=== PATIENT | male | born 1955 | race American Indian/Alaskan Native ===

== ENCOUNTER 2018-02-13 03:54 | Emergency (ER) | payer MEDICAID ==
[~2018-02-13] VITALS: Ht 172.7 cm; Wt 67.3 kg
[~2018-02-13 03:54] MED LIST: IBUP-1984 PO
[2018-02-13] MEDS ORDERED: NALO4SPR INH (04:21)
[2018-02-13 06:47] VITALS: BP 146/86
== END 2018-02-13 06:48 | disposition home or self-care (01) ==
LOC: ER 03:55
DX: T40.1X1A Poisoning by heroin, accidental (unintentional), initial encounter (principal); R40.20 Unspecified coma; F11.90 Opioid use, unspecified, uncomplicated; Y92.89 Other specified places as the place of occurrence of the external cause
CPT/HCPCS: 99283

== ENCOUNTER 2021-10-25 22:07 | Emergency (ER) | payer OTHER, MEDICARE, MEDICAID ==
[~2021-10-25] VITALS: Ht 172.7 cm; Wt 70.5 kg
[~2021-10-25 22:07] MED LIST changes: +NALO4SPR INH
[2021-10-26] MEDS ORDERED: cephalexin 250mg capsule PO ONE (02:25)
[2021-10-26] MEDS ORDERED: TETanus/Pertussis (Acell)/Diphther VAC/PF (Tdap-Adult) 0.5ml syringe IMVAC ONE (02:25)
[2021-10-26] MEDS ORDERED: CEPH-585 PO (02:26)
[2021-10-26 02:42] VITALS: BP 159/97
== END 2021-10-26 02:59 | disposition home or self-care (01) ==
LOC: ER 22:07
DX: L03.116 Cellulitis of left lower limb (principal); F11.90 Opioid use, unspecified, uncomplicated; Z98.890 Other specified postprocedural states; Z79.2 Long term (current) use of antibiotics; Z79.899 Other long term (current) drug therapy
CPT/HCPCS: 90471; 90715; 99284

== ENCOUNTER 2024-11-22 13:30 | Emergency (ER) | payer OTHER, BC, MEDICAID ==
[~2024-11-22] VITALS: Ht 172.7 cm; Wt 63.6 kg
--- NOTE | 2024-11-22 14:32 | Physician Documentation ---
History of Present Illness Chief Complaint: Extremity Swelling Stated Complaint: POSS DVT HPI MSE: Keven saw patient in triage. Medication Reconciliation Allergies: Coded Allergies: No Known Allergies (Unverified , 11/22/24) Scheduled Naloxone HCl (Narcan), 1 DOSPAK INH ONCE Scheduled PRN Ibuprofen* (Motrin*), 800 MG PO Q8H PRN for pain, (Reported) Past Medical History Past Medical History: *CARDIOVASCULAR* Past Surgical History: orthopedic surgeries Drug Use: heroin Lives In: Home Physical Exam Vital Signs: Temperature: 98.1, Source: Oral, Heart Rate: 90, Respiratory Rate: 16, BP: 156/96, Pulse Oximetry: 95, Weight: 63.600 Oxygen Flow Rate: 0 Progress Results/Orders Results/Orders Vital Signs 11/22/24 13:40 Temp 98.1 Pulse 90 Resp 16 B/P (MAP) 156/96 Pulse Ox 95 O2 Flow Rate 0 Departure Impression: Primary Impression: Edema of lower extremity Referrals: NO PRIMARY CARE PROVIDER (PCP) Signature Scribe Signature: A Attestation: Scribed for Brianne Bruce by SARAH Hurtado . 11/24/24 19:50 BRIANNE BRUCE Nov 22, 2024 14:32
--- NOTE | 2024-11-22 20:06 | VASCULAR REPORT ---
EXAM: VASC VL VENOUS Clinical History: left lower extremity wound, erythema Comparison: None Technique: Duplex Doppler evaluation of the deep venous systems of the left lower extremity from the common femoral veins to the popliteal veins including color Doppler and spectral/pulsed waveform analysis was performed. Findings: No visible intraluminal venous thrombus. No evidence of incompressibility or abnormal color or spectral Doppler flow visualized in the deep left lower extremity veins. Proximal greater saphenous vein is grossly unremarkable. Prominent lymph node in the left groin, nonspecific but favored reactive. Impression: 1. No sonographic evidence of deep venous thrombosis throughout the left lower extremity from the popliteal vein to the common femoral vein.
[2024-11-22 20:53] LABS: CREATININE 0.82 MG/DL (0.60-1.10); eCRCL 76 ML/MIN; eGFR > 90 ML/MIN
[2024-11-22 21:04] LABS: TOTAL CARBON DIOXIDE 25.1 MMOL/L (24-32)
--- NOTE | 2024-11-22 21:04 | VASCULAR REPORT ---
EXAM: VASC VL ARTERIAL HISTORY: left lower extremity wound COMPARISON: None TECHNIQUE: Real-time grayscale and color Doppler images of the left lower extremity were obtained with spectral waveform analysis. Findings: Arterial peak systolic velocities reported in units of centimeters per second (cm/sec): Left side: Common femoral - 84 Profunda - 86 Proximal SFA - 102 Mid SFA - 124 Distal SFA - 170 Popliteal - 96 Peroneal - not visualized Posterior tibial - 72 Anterior tibial - 40 Dorsalis pedis - 10 Diffuse multiphasic waveforms IMPRESSION: 1. No evidence of hemodynamically significant stenosis throughout the left lower extremity arterial system.
[2024-11-22 21:21] VITALS: BP 162/90; PULSE 83; RESP 14; TEMP 98.1; O2SAT 99
[2024-11-22 21:38] LABS: MEAN PLATELET VOLUME 7.1 FL (7.4-10.4); RED CELL DISTRIBUTION WIDTH 15.8 % (11.5-14.5)
== END 2024-11-22 22:25 | disposition left against medical advice (07) ==
LOC: ER 13:30
DX: I82.4Z2 Acute embolism and thrombosis of unspecified deep veins of left distal lower extremity (principal)
CPT/HCPCS: 36415; 80053; 85025; 93926; 93971; 99284

== ENCOUNTER 2024-12-14 06:35 | Inpatient (IN) | payer OTHER, BC, MEDICAID ==
[~2024-12-14] VITALS: Ht 172.7 cm; Wt 61.8 kg
--- NOTE | 2024-12-14 07:52 | Physician Documentation ---
Addendum CHIEF COMPLAINT/HPI: The patient is a 69-year-old male with a history of polysubstance abuse and i ntravenous drug use who has had an infection involving his left lower extremity for at least one month. He completed a 10 day course of dual antibiotics and there was some improvement temporarily. Over the past 12 days his leg has become more red and swollen. REVIEW OF SYSTEMS: Constitutional: Denies chills, fatigue, fever, weight gain or weight loss. HEENT: Denies hearing loss, sinus pressure or visual changes. Respiratory: Denies cough, shortness of breath or wheezing. Cardiovascular: Denies chest pain, pain while walking (claudication), edema or palpitations. Gastrointestinal: Denies abdominal pain, blood in stool, constipation, diarrhea, heartburn, loss of appetite, nausea or vomiting. Genitourinary: Denies painful urination (dysuria), excessive amount of urine (polyuria) or urinary frequency. Metabolic/Endocrine: Denies cold intolerance, heat intolerance, excessive thirst (polydipsia) or excessive hunger (polyphagia). Neurological: Denies dizziness, extremity numbness, extremity weakness, headaches, seizures or tremors. Psychiatric: Denies anxiety or depression. Integumentary: Denies breast discharge, breast lump, hives, mole change(s), rash or skin lesion. Musculoskeletal: Erythema and swelling of left lower extremity. Hematologic: Denies easily bleeding, easily bruises, lymphedema or issues with blood clots. Immunologic: Denies food allergies or seasonal allergies. PHYSICAL EXAMINATION: Vitals and nursing note reviewed. Constitutional: General: Patient is awake, alert, oriented x 4 in no acute distress and well appearing. Speech is clear and lucid. Appearance: Normal appearance. Patient is not ill-appearing, toxic-appearing or diaphoretic. HENT: Head: Normocephalic and atraumatic. Mouth: Mucous membranes are moist. Pharynx: Oropharynx is clear. Eyes: General: No scleral icterus. Extraocular Movements: Extraocular movements intact. Pupils: Pupils are equal, round, and reactive to light. Neck: Supple, no Kernig or Brudzinski sign. Cardiovascular: Rate and Rhythm: Normal rate and regular rhythm. Heart sounds: No murmur heard. Pulmonary: Effort: No respiratory distress. Breath sounds: No wheezing, rhonchi or rales. Abdominal: General: There is no distension. Palpations: There is no fluid wave, hepatomegaly or mass. Tenderness: There is no abdominal tenderness. There is no guarding. Musculoskeletal: General: Erythema and swelling of left lower leg. Skin: Coloration: Skin is not jaundiced. Findings: No erythema or rash. Neurological: Mental Status: Patient is alert. MEDICAL DECISION MAKING: I am obtaining laboratory studies, blood culture and wound culture along with a vascular study of the left lower extremity. This patient has a failed outpatien t treatment for his cellulitis and will require admission. I am starting him on vancomycin. Departure Disposition: ADMITTED INPATIENT Admitted to Inpatient Unit: to hospitalist Impression: Primary Impression: Cellulitis Condition: Stable YOCASTA SULLIVAN MD Dec 14, 2024 07:52
[2024-12-14] MEDS: normal saline 1000ml 1,000 ML IV ONE (08:48)
--- NOTE | 2024-12-14 08:53 | VASCULAR REPORT ---
Bilateral lower extremity venous duplex Clinical History: edema Comparison: VASC VL VENOUS on DOS: 11/22/24 Technique: Duplex Doppler evaluation of the deep venous systems of both lower extremities from the common femoral veins to the popliteal veins including color Doppler and spectral/pulsed waveform analysis was performed. Findings: Vein Imaging (Right) CFV (R): Spontaneous, Respirophasic, Augmentation Reflux: ms Vein Imaging (Left) CFV (L): Compressible, Spontaneous, Respirophasic, Augmentation Reflux: ms SFJ (L): Compressible, Spontaneous, Respirophasic, Augmentation Reflux: ms FEM (L): Compressible, Spontaneous, Respirophasic, Augmentation Reflux: ms POP (L): Compressible, Spontaneous, Respirophasic, Augmentation Reflux: ms DFV (L): Compressible, Spontaneous, Respirophasic, Augmentation Reflux: ms PTV (L): Compressible, Spontaneous, Respirophasic, Augmentation Reflux: ms GSV (L): Compressible, Spontaneous, Respirophasic, Augmentation Reflux: ms Peroneals (L): Compressible, Spontaneous, Respirophasic, Augmentation Reflux: ms CONCLUSION Technologist Preliminary Impression: Dwain Rivero, RVT No sonographic evidence of deep venous thrombosis in left lower extremity. Normal compressible veins with spontaneous respirophasic flow and good augmentation throughout left leg. Enlarged lymph node noted in the left groin measurin.7 x 1.3 x 2.5 cm and 1.1 x 0.7 x 2.1 cm. Contralateral common femoral vein also shows normal spontaneous respirophasic flow and good augmentation.
[2024-12-14] MEDS: vancomycin/NS 1 GM ADD-VANTAGE 250 ML X 1 DOSE IV ONE (09:04)
[2024-12-14 09:22] LABS: MEAN PLATELET VOLUME 6.8 FL (7.4-10.4); RED CELL DISTRIBUTION WIDTH 15.1 % (11.5-14.5)
[2024-12-14 09:36] LABS: INR 1.0 INR
[2024-12-14 09:51] LABS: CREATININE 0.78 MG/DL (0.60-1.10); TOTAL CARBON DIOXIDE 27.8 MMOL/L (24-32); eCRCL 78 ML/MIN; eGFR > 90 ML/MIN
[2024-12-14 09:56] LABS: ETHANOL < 10 MG/DL (<10)
[2024-12-14 10:31] LABS: URINE AMPHETAMINE SCREEN POSITIVE (Neg); URINE BARBITUATE SCREEN NEGATIVE (Neg); URINE BENZODIAZEPINES SCREEN NEGATIVE (Neg); URINE CANNABINOID SCREEN POSITIVE (Neg); URINE COCAINE SCREEN NEGATIVE (Neg); URINE METHADONE SCREEN NEGATIVE (Neg); URINE OPIATE SCREEN NEGATIVE (Neg); URINE PHENCYCLIDINE SCREEN NEGATIVE (Neg)
[2024-12-14] MEDS ORDERED: potassium Cl 40MEQ/1/2NS 520ml 520 ML IV PRN (10:45)
[2024-12-14] MEDS ORDERED: magnesium sulf-water 2g/50mL 50 ML IV PRN (10:45)
[2024-12-14] MEDS ORDERED: HYDROcodone/acetaminophen 10/325mg tab PO PRN (10:45)
[2024-12-14] MEDS ORDERED: magnesium Cl slow-release 64mg tablet PO PRN (10:45)
[2024-12-14] MEDS ORDERED: potassium Cl 20 mEq SR tablet PO PRN ×2 (10:45)
[2024-12-14] MEDS: PERFLUTREN PROTEIN-A MICROSPHR (Optison) 0.22 MG/ML 3ML VIAL IV ONE (10:45)
[2024-12-14] MEDS ORDERED: magnesium hydroxide 30ml (MOM) UD suspension PO PRN (10:45)
[2024-12-14] MEDS ORDERED: morphine 4 MG/ML inj SYRINge IV PRN (10:45)
[2024-12-14] MEDS ORDERED: mag hydrox/Alum hydrox/simeth 30ml oral suspension PO PRN (10:45)
[2024-12-14] MEDS ORDERED: HYDROcodone/acetaminophen 5mg/325mg tablet PO PRN (10:45)
[2024-12-14] MEDS ORDERED: magnesium sulf-water 4G/100mL 100 ML IV PRN (10:45)
[2024-12-14] MEDS ORDERED: ondansetron/PF 4mg/2ml inj IV PRN (10:45)
[2024-12-14] MEDS: piperacillin/tazo 3.375gm/50ml 50 ML IV SCH ×2 (11:23→20:42)
[2024-12-14] MEDS: normal saline 1000ml 1,000 ML IV SCH (11:23)
[2024-12-14 11:35] LABS: APTT 32 SECONDS (22-32)
[2024-12-14 11:42] LABS: PHOSPHORUS 3.1 MG/DL (2.3-4.5); PRO BRAIN NATRIURETIC PEPTIDE 100 PG/ML (0-125)
[2024-12-14 14:13] LABS: LEUKOCYTE ESTERASE ,URINE NEGATIVE (Neg); NITRITES, URINE NEGATIVE (Neg); OCCULT BLOOD,URINE NEGATIVE (Neg)
[2024-12-14 14:25] LABS: UA COLLECTION TYPE URINAL
--- NOTE | 2024-12-14 15:48 | ELECTROCARDIOGRAPH REPORT ---
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
--- NOTE | 2024-12-14 19:38 | HISTORY AND PHYSICAL-Residence ---
History & Physical Providers to CC Resident Creating Document: JOSE L FARIAS, RES CC: EFRA ABBOTT MD ~ History of Present Illness Reason for Admit\Complaint: Cellulitis History of Present Illness A 69-year-old male with a history of polysubstance abuse and intravenous drug use who has a past history of osteomyelitis of his right ankle, presented to the ED with left lower extremity cellulitis, patient stated that he had a scratch on his ankle while he was working in his garden,a month ago which started as a small sore and then eventually over a period of one month it developed into cellulitis below his knee extending all the way to his toes. Patient stated that he did experience couple of episodes of fever and chills during this month. Patient stated that he visited the [facility] and was prescribed oral antibiotics which the patient continued for 10 days, but patient continued to have severe pain and increase in redness and erythema in his left lower extremity. Patient's primary care doctor is from the [facility] Patient lives alone in his house Allergies: Coded Allergies: No Known Allergies (Unverified , 12/14/24) Home Medications Home Medications Active Narcan (Naloxone HCl) 4 Mg Ethan 1 Dospak INH ONCE Use as directed Reported Motrin* (Ibuprofen) 400 Mg Tablet 800 Mg PO Q8H PRN Past Medical History Past Medical History Past Surgical History Surgical History Comment Osteomyelitis of right toe 12 years ago post trauma Left eye retina repair Past Social History Social History Comment Patient smokes marijuana every day for the last 15 years Patient also admits to using meth for the last 10 years but stated that he quit 2-3 weeks ago Patient denied any alcohol or tobacco abuse Drug Use: Heroin Lives In: Home ROS ROS Constitutional: No fever, dizziness, weakness, no decrease in appetite HEENT: Normal vision. No sore throat, epistaxis, tinnitus Cardiovascular: No chest pain/discomfort, palpitations, syncope. no pedal edema Respiratory: No sob, cough,hemoptysis Gastrointestinal: No abdominal pain, nausea, vomiting. No diarrhea, melena. Genitourinary: No frquency, urgency, incontinence, nocturia. No dysuria, hematuria Musculoskeletal: Normal, patient complains of pain in his left lower extremity Endocrine: No fatigue, polydipsia, polyuria. No heat or cold intolerance Neurologic: No headache, vertigo. No weakness, numbness or tingling of extremities Psychiatric: No hallucinations/delusions, no anhedonia, no suicidal ideation Hematologic: Left lower extremity cellulitis associated with the erythematous and small vesicles and blisters Exam Vitals: Vital Signs Date Time Temp Pulse Resp B/P (MAP) Pulse Ox O2 Delivery O2 Flow Rate FiO2 12/14/24 19:23 16 12/14/24 17:19 64 96 0 12/14/24 06:39 97.6 General: General: Awake, oriented to person, place and time HEENT: Conjunctive are pink, sclerae clear, no icterus, arcus senilis noted,decreased vision in left eye; reactive to light, no ear discharge, no pharyngeal erythema or an edema. Neck: Supple, no JVD, no lymphadenopathy and thyromegaly. Chest: [place] shaped chest Equal air entry on both lungs, no additional sounds no rhonchi no wheezing at the moment. Cardiovascular: S1-S2 regular sinus rhythm and, regular rate, no gallops, no rubs, no murmurs Abdomen: No visible peristalsis, Bowel sounds present on auscultation, soft, no tenderness, no guarding, no rigidity Extremities: Left lower extremity edema and cellulitis present; right lower extremity chronic vascular insufficiency stasis noted; right lower extremity ankle deformity noted post traumatic surgery; feeble peripheral pulses noted in the right lower extremity Central Nervous System: No focal neurological deficits, no motor or sensory weakness in all 4 extremities, could move all 4 extremities, 2+ deep tendon reflexes, negative Babinski. Musculoskeletal: No joint swelling, deformities, inflammations, and no scoliosis and back tenderness Skin: Warm and dry. Dry oral mucosa. Diagnostic Data Last Recorded Lab Results: 12/14/24 0910 12/14/24 0910 Diagnostic Data: Laboratory Tests Test 12/14/24 09:10 Prothrombin Time 10.2 SECONDS (9.0-12.0) INR International Normalized Ratio 1.0 INR Activated Partial Thromboplast Time 32 SECONDS (22-32) Coagulation Comments Counseling Services Smoking & Tobacco Cessation: 3-10 Minutes (Counseled the patient extensively about the side effects of methamphetamine usage in other illicit drug use) Advance Care Planning Advanced Care plannin - 30 Minutes (Spoke with the patient regarding his code status and patient decided he wanted to be full code) Additional Plan Left lower extremity cellulitis 2/2 failed outpatient oral antibiotics Erythematous lower extremity with small vesicles and blisters noted Presented with fever and chills for the last one month WBC count normal; no fever noted during this admission; patient's CRP is elevated Vascular ultrasound : No sonographic evidence of deep venous thrombosis in left lower extremity. Normal compressible veins with spontaneous respirophasic flow and good augmentation throughout left leg. Enlarged lymph node noted in the left groin. 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 Patient states that he quit few weeks ago Utox during this visit positive for methamphetamine and cannabinoids Substance abuse and social service director consult in place Code Status: Full code DVT Prophylaxis: Heparin Lines/Tubes: PIV Nutrition: Regular diet PT:yes Prognosis: Guarded Disposition: Follow with HbA1c, lipid panel, echocardiogram and inflammatory markers Jose L Farias MD Internal medicine resident,PGY-1 Date of Service: Dec 14, 2024 Billing Provider: EFRA ABBOTT MD Common Visit Codes: [id number] INP/OBS CARE (HIGH) Secondary Visit Codes: [id number] CARE PLAN 30 MINUTES JOSE L FARIAS, RES Dec 14, 2024 19:37 EFRA ABBOTT MD Dec 19, 2024 15:21
[2024-12-14] MEDS: docusate sod 100mg capsule PO SCH (20:00)
[2024-12-14] MEDS: K and/or MAG REPLACEMENT MC SCH (20:06)
[2024-12-14] MEDS: heparin, porcine 5000 units/ml vial SQ SCH (20:43)
[2024-12-14] MEDS ORDERED: iohexol 300mg/ml 100ml inj. ONE (20:52)
[2024-12-14 21:30] VITALS: BP 168/84; PULSE 83; RESP 19; TEMP 97.6; O2SAT 100
--- NOTE | 2024-12-14 21:33 | RADIOLOGY REPORT ---
INDICATION: Cellulitis possible abscess COMPARISON: None TECHNIQUE: CT of the left lower extremity from the proximal femur through the foot was performed with contrast. Volume transverse images were obtained and reconstructed in multiple planes using bone and soft tissue algorithms. Radiation Dose Information: CT Dose: CTDI volume is a mGy. Dose-length product is 736 mGy*cm FINDINGS: Mild posterior subcutaneous stranding in the mid to distal thigh. Circumferential subcutaneous stranding and skin thickening throughout the lower leg extending to the ankle and dorsal forefoot. No visualized fluid collection, soft tissue gas, or deep fascial edema. Diffuse mild to severe atherosclerosis without obvious arterial occlusion. Muscles are unremarkable. Multiple enlarged left inguinal lymph nodes. No acute osseous finding. No knee or ankle joint effusion. No significant degenerative changes. No acute finding on limited assessment of the genitourinary system. IMPRESSION: 1. [place] subcutaneous stranding and skin thickening throughout the left lower leg, foot and ankle. Findings may represent infectious/inflammatory or passive etiology. No visualized fluid collection or evidence of deep space infection. 2. Probably reactive left inguinal adenopathy. 3. Mild to severe atherosclerosis. No obvious arterial occlusion. All CT scans at this medical facility are performed using dose modulation techniques as appropriate to a performed exam including the following: Automated exposure control was utilized; adjustment of the MA and/or KV according to patient size; and use of iterative reconstruction technique.
[2024-12-14] MEDS: vancomycin/NS 1 GM ADD-VANTAGE 250 ML IV SCH (21:41)
[2024-12-15 06:00] VITALS: BP 135/89; PULSE 69; RESP 16; TEMP 97.9; O2SAT 100
[2024-12-15 06:42] LABS: MEAN PLATELET VOLUME 7.0 FL (7.4-10.4); RED CELL DISTRIBUTION WIDTH 15.0 % (11.5-14.5)
[2024-12-15 07:02] LABS: CREATININE 0.76 MG/DL (0.60-1.10); TOTAL CARBON DIOXIDE 28.0 MMOL/L (24-32); eCRCL 80 ML/MIN; eGFR > 90 ML/MIN
[2024-12-15] MEDS: lactobacillus rhamnosus 10,000 MMU CELLS/CAPSULE PO SCH (07:25)
[2024-12-15 08:00] VITALS: RESP 14; O2SAT 98
[2024-12-15] MEDS: piperacillin/tazo 3.375gm/50ml 50 ML IV SCH (08:00)
[2024-12-15 10:00] VITALS: BP 148/81; PULSE 68; RESP 20; TEMP 97.9; O2SAT 98
[2024-12-15] MEDS: JUVEN Shake w/Arg/Glut/Ca2+Bmb (Juven 19.3gm) pkt 240ml PO SCH (12:42)
[2024-12-15 18:00] VITALS: BP 109/75; PULSE 82; RESP 16; TEMP 99; O2SAT 98
--- NOTE | 2024-12-15 18:24 | PROGRESS NOTE- Residence ---
Progress Note - Resident Providers to CC Resident Creating Document: JOSE L FARIAS RES CC: EFRA ABBOTT MD ~ Antibiotic Timeout Antibiotic Ordered?: Yes Subjective Patient was seen and examined at bedside; patient stated that he notices pain decreased better compared to yesterday. No other acute overnight symptoms noted Objective Vital Signs Date Time Temp Pulse Resp B/P (MAP) Pulse Ox O2 Delivery O2 Flow Rate FiO2 12/15/24 10:00 97.9 68 20 148/81 (103) 98 Room Air 12/15/24 08:00 0.0 Result Diagram: 12/15/2454212/15/24542 General: Awake, oriented to person, place and time HEENT: Conjunctive are pink, sclerae clear, no icterus, arcus senilis noted,decreased vision in left eye; reactive to light, no ear discharge, no pharyngeal erythema or an edema. Neck: Supple, no JVD, no lymphadenopathy and thyromegaly. Chest: [place] shaped chest Equal air entry on both lungs, no additional sounds no rhonchi no wheezing at the moment. Cardiovascular: S1-S2 regular sinus rhythm and, regular rate, no gallops, no rubs, no murmurs Abdomen: No visible peristalsis, Bowel sounds present on auscultation, soft, no tenderness, no guarding, no rigidity Extremities: Left lower extremity edema and cellulitis present; right lower extremity chronic vascular insufficiency stasis noted; right lower extremity ankle deformity noted post traumatic surgery; feeble peripheral pulses noted in the right lower extremity Central Nervous System: No focal neurological deficits, no motor or sensory weakness in all 4 extremities, could move all 4 extremities, 2+ deep tendon reflexes, negative Babinski. Musculoskeletal: No joint swelling, deformities, inflammations, and no scoliosis and back tenderness Skin: Warm and dry. Dry oral mucosa. Coagulation Studies Laboratory Tests Test 12/14/24 09:10 Prothrombin Time 10.2 SECONDS (9.0-12.0) INR International Normalized Ratio 1.0 INR Activated Partial Thromboplast Time 32 SECONDS (22-32) Coagulation Comments Advance Care Planning Advanced Care plannin - 30 Minutes Plan Plan Left lower extremity cellulitis 2/2 failed outpatient oral antibiotics Erythematous lower extremity with small vesicles and blisters noted Presented with fever and chills for the last one month WBC count normal; no fever noted during this admission; patient's CRP is elevated Vascular ultrasound : No sonographic evidence of deep venous thrombosis in left lower extremity. Normal compressible veins with spontaneous respirophasic flow and good augmentation throughout left leg. Enlarged lymph node noted in the left groin. 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 Patient states that he quit few weeks ago Utox during this visit positive for methamphetamine and cannabinoids Substance abuse and social welfare clerk consult in place Hypertension-possibly newly diagnosed Blood pressure has been elevated during this visit Initiated the patient on amlodipine 5 mg; we will titrate as needed Echocardiogram normal with EF of 65-70% Code Status: Full code DVT Prophylaxis: Heparin Lines/Tubes: PIV Nutrition: Regular diet PT:yes Prognosis: Guarded Disposition: We will continue to monitor the patient today Jose L Farias MD Internal medicine resident,PGY-1 Date of Service: Dec 15, 2024 Billing Provider: EFRA ABBOTT MD Common Visit Codes: [id number] INP/OBS CARE(HIGH) JOSE L FARIAS, RES Dec 15, 2024 18:23 EFRA ABBOTT MD Dec 19, 2024 15:21
[2024-12-15] MEDS: VANCOMYCIN LEVEL IV ONE (21:03)
[2024-12-15 22:00] VITALS: BP 128/82; PULSE 80; RESP 14; TEMP 97.3; O2SAT 98
--- NOTE | 2024-12-16 05:51 | CARDIOLOGY REPORT ---
APPROVED REPORT EXAM: Comprehensive 2D, Doppler, and color-flow Echocardiogram. Patient Location: ER R 11 Blood Pressure: 172/96 mmHg Heart Rate: 69 bpm Indications Rule Out Endocarditis Polysubstance Abuse Angiogram w/o Stent (05/2014) Manager Er: Cuauhtemoc Kaba MD No previous ECHO 2D Dimensions LA Diam 3.1 cm IVSd 0.6 (0.7-1.1cm) LVDd 5.2 cm PWd 1.0 (0.7-1.1cm) IVSs 1.0 (0.8-1.2cm) LVDs 3.3 (2.5-4.0cm) PWs 1.5 (0.8-1.2cm) LVOT Diameter 2.22 (1.8-2.4cm) LVEF(%) 65.8 (>50%) Ao Asc Diam. 3.06 cm IVC 18.40 mm FS (%) 36.4 % SV 85.6 ml CO 5.6 L/min M-Mode Dimensions Left Atrium(MM) 3.88 (2.5-4.0cm) Aortic Root 3.15 (2.2-3.7cm) Aortic Cusp Exc 2.20 (1.5-2.0cm) MV EPSS 1.2 (<0.5cm) Aortic Valve AoV Peak Nathaniel. 132.2 cm/s AoV VTI 26.3 cm AO Peak GR. 7.0 mmHg AO Mean GR. 4 mmHg LVOT VTI 17.94 cm LVOT Peak Nathaniel. 88.9 cm/s KRISTAL(VTI)/BSA 2.65 cm2/m2 KRISTAL (VTI) 2.65 cm2 AV DI 0.68 % Mitral Valve MV E Velocity 66.4 cm/s MV Peak Gr. 2 mmHg MV DECEL TIME 224 ms MV A Velocity 73.2 cm/s MV PHT 68 ms E/A Ratio 0.9 MVA (PHT) 3.24 cm2 MV VMax 61.7 cm/s TDI Lateral E' P. V 11.63 cm/s E/Lateral E' 5.7 Tricuspid Valve TR P. Velocity 209 cm/s RAP ESTIMATE 10 mmHg TR Peak Gr. 18 mmHg RVSP 28 mmHg LEFT VENTRICLE Normal LV size and wall thickness. Overall systolic function is normal. LVEF is 65-70%. RIGHT VENTRICLE Right ventricle is mild to moderately dilated with adequate function. ATRIA The left atrium size is normal. AORTIC VALVE Trileaflet AV appears mildly sclerotic without stenosis. No insufficiency. No vegetation seen. MITRAL VALVE Moderate mitral annular calcification without stenosis. Trace regurgitation. No vegetation seen. TRICUSPID VALVE The tricuspid valve is normal in structure with trace regurgitation. No vegetation seen. PULMONIC VALVE The pulmonary valve is normal in structure with physiologic insufficiency. No vegetation seen. GREAT VESSELS The aortic root is normal in size. The ascending aorta is normal in size. The IVC is normal in size and collapses >50% with inspiration. PERICARDIUM Normal pericardium. No effusion. Other Information Study Quality: Adequate Conclusion Normal LV size and wall thickness. Overall systolic function is normal. LVEF is 65-70%. Right ventricle is mild to moderately dilated with adequate function. The left atrium size is normal. Trileaflet AV appears mildly sclerotic without stenosis. No insufficiency. No vegetation seen. Moderate mitral annular calcification without stenosis. Trace regurgitation. No vegetation seen. The tricuspid valve is normal in structure with trace regurgitation. No vegetation seen. The pulmonary valve is normal in structure with physiologic insufficiency. No vegetation seen. Normal pericardium. No effusion.
[2024-12-16 06:00] VITALS: BP 145/79; PULSE 75; RESP 14; TEMP 97.8; O2SAT 97
[2024-12-16 07:24] LABS: MEAN PLATELET VOLUME 6.9 FL (7.4-10.4); RED CELL DISTRIBUTION WIDTH 14.7 % (11.5-14.5)
[2024-12-16 08:00] VITALS: RESP 12; O2SAT 97
[2024-12-16 08:01] LABS: CREATININE 0.68 MG/DL (0.60-1.10); TOTAL CARBON DIOXIDE 25.3 MMOL/L (24-32)
[2024-12-16 08:02] LABS: eCRCL 90 ML/MIN; eGFR > 90 ML/MIN
[2024-12-16 10:00] VITALS: BP 154/87; PULSE 72; RESP 16; TEMP 98.5; O2SAT 100
--- NOTE | 2024-12-16 15:52 | PROGRESS NOTE- Residence ---
Progress Note - Resident Providers to CC Resident Creating Document: JOSE L FARIAS RES CC: UBALDO EARL DO ~ Antibiotic Timeout Antibiotic Ordered?: Yes Subjective Patient was seen and examined at bedside; patient stated that he notices pain decreased better compared to yesterday. No other acute overnight symptoms noted Objective Vital Signs Date Time Temp Pulse Resp B/P (MAP) Pulse Ox O2 Delivery O2 Flow Rate FiO2 12/16/24 10:00 98.5 72 16 154/87 (109) 100 Room Air 12/16/24 08:00 0.0 Result Diagram: 12/16/2454 12/16/24653 General: Awake, oriented to person, place and time HEENT: Conjunctive are pink, sclerae clear, no icterus, arcus senilis noted,decreased vision in left eye; reactive to light, no ear discharge, no pharyngeal erythema or an edema. Neck: Supple, no JVD, no lymphadenopathy and thyromegaly. Chest: [place] shaped chest Equal air entry on both lungs, no additional sounds no rhonchi no wheezing at the moment. Cardiovascular: S1-S2 regular sinus rhythm and, regular rate, no gallops, no rubs, no murmurs Abdomen: No visible peristalsis, Bowel sounds present on auscultation, soft, no tenderness, no guarding, no rigidity Extremities: Left lower extremity edema and cellulitis present erythematous with scab tissues; right lower extremity chronic vascular insufficiency stasis noted; right lower extremity ankle deformity noted post traumatic surgery; feeble peripheral pulses noted in the right lower extremity Central Nervous System: No focal neurological deficits, no motor or sensory weakness in all 4 extremities, could move all 4 extremities, 2+ deep tendon reflexes, negative Babinski. Musculoskeletal: No joint swelling, deformities, inflammations, and no scoliosis and back tenderness Skin: Warm and dry. Dry oral mucosa. Coagulation Studies Laboratory Tests Test 12/14/24 09:10 Prothrombin Time 10.2 SECONDS (9.0-12.0) INR International Normalized Ratio 1.0 INR Activated Partial Thromboplast Time 32 SECONDS (22-32) Coagulation Comments Advance Care Planning Advanced Care plannin - 30 Minutes Assessment Assessment A 69-year-old male with a history of polysubstance abuse and intravenous drug use who has a past history of osteomyelitis of his right ankle, presented to the ED with left lower extremity cellulitis, Plan Plan Left lower extremity cellulitis 2/2 failed outpatient oral antibiotics MRSA positive nasal nares Erythematous lower extremity with small vesicles and scabs noted Decrease in erythema and edema in the left lower extremity noted compared to before Plan Continue antibiotics ceftriaxone and Zosyn day 3 Continue normal saline 100 mL/hour Elevate patient's left lower extremity Pain medications in place in case patient complains of pain Wound care consult in place Active illicit drug use 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 Patient states that he quit few weeks ago Utox during this visit positive for methamphetamine and cannabinoids Substance abuse and clinical social worker consult in place Hypertension-possibly newly diagnosed Blood pressure has been elevated during this visit Initiated the patient on amlodipine 5 mg; we will titrate as needed Echocardiogram normal with EF of 65-70% Code Status: Full code DVT Prophylaxis: Heparin Lines/Tubes: PIV Nutrition: Regular diet PT:yes Prognosis: Guarded Disposition: We will continue to monitor the patient today; possible discharge tomorrow Jose L Farias MD Internal medicine resident,PGY-1 Date of Service: Dec 16, 2024 Billing Provider: UBALDO EARL DO Common Visit Codes: [id number] INP/OBS CARE(HIGH) JOSE L FARIAS, RES Dec 16, 2024 15:52 UBALDO EARL DO Dec 16, 2024 17:00
[2024-12-16 18:00] VITALS: BP 143/87; PULSE 68; RESP 15; TEMP 98.4; O2SAT 100
[2024-12-16] MEDS: VANCOMYCIN LEVEL IV ONE (21:20)
[2024-12-16 22:00] VITALS: BP 136/67; PULSE 76; RESP 14; TEMP 97.6; O2SAT 97
[2024-12-17 06:00] VITALS: BP 149/97; PULSE 79; RESP 14; TEMP 97.3; O2SAT 98
[2024-12-17 06:45] LABS: MEAN PLATELET VOLUME 7.1 FL (7.4-10.4)
[2024-12-17 06:48] LABS: RED CELL DISTRIBUTION WIDTH 14.9 % (11.5-14.5)
[2024-12-17 07:00] LABS: CREATININE 1.00 MG/DL (0.60-1.10); TOTAL CARBON DIOXIDE 25.4 MMOL/L (24-32); eCRCL 61 ML/MIN; eGFR 74 ML/MIN
[2024-12-17 08:00] VITALS: RESP 14; O2SAT 98; O2SAT 99
[2024-12-17 10:00] VITALS: BP 124/80; PULSE 82; RESP 12; TEMP 98; O2SAT 99
--- NOTE | 2024-12-17 12:42 | PROGRESS NOTE- Residence ---
Progress Note - Resident Providers to CC Resident Creating Document: JOSE L FARIAS RES CC: UBALDO EARL DO ~ Antibiotic Timeout Antibiotic Ordered?: Yes Subjective Patient was seen and examined at bedside; his left leg cellulitis is getting much better compared to before; decrease in erythema and increased scab formation is noted; patient is comfortably resting in his bed. No other acute overnight symptoms noted Objective Vital Signs Date Time Temp Pulse Resp B/P (MAP) Pulse Ox O2 Delivery O2 Flow Rate FiO2 12/17/24 08:06 79 12/17/24 08:00 14 99 Room Air 12/17/24 06:00 97.3 149/97 (114) 12/16/24 08:00 0.0 Result Diagram: 12/17/2432 12/17/24531 General: Awake, oriented to person, place and time HEENT: Conjunctive are pink, sclerae clear, no icterus, arcus senilis noted,decreased vision in left eye; reactive to light, no ear discharge, no pharyngeal erythema or an edema. Neck: Supple, no JVD, no lymphadenopathy and thyromegaly. Chest: [place] shaped chest Equal air entry on both lungs, no additional sounds no rhonchi no wheezing at the moment. Cardiovascular: S1-S2 regular sinus rhythm and, regular rate, no gallops, no rubs, no murmurs Abdomen: No visible peristalsis, Bowel sounds present on auscultation, soft, no tenderness, no guarding, no rigidity Extremities: Left lower extremity cellulitis present erythematous with scab tissues; right lower extremity chronic vascular insufficiency stasis noted; right lower extremity ankle deformity noted post traumatic surgery; weak peripheral pulses noted in the right lower extremity Central Nervous System: No focal neurological deficits, no motor or sensory weakness in all 4 extremities, could move all 4 extremities, 2+ deep tendon reflexes, negative Babinski. Musculoskeletal: No joint swelling, deformities, inflammations, and no scoliosis and back tenderness Skin: Warm and dry. Dry oral mucosa. Coagulation Studies Laboratory Tests Test 12/14/24 09:10 Prothrombin Time 10.2 SECONDS (9.0-12.0) INR International Normalized Ratio 1.0 INR Activated Partial Thromboplast Time 32 SECONDS (22-32) Coagulation Comments Advance Care Planning Advanced Care plannin - 30 Minutes Assessment Assessment A 69-year-old male with a history of polysubstance abuse and intravenous drug use who has a past history of osteomyelitis of his right ankle, presented to the ED with left lower extremity cellulitis, Plan Plan Left lower extremity cellulitis 2/2 failed outpatient oral antibiotics MRSA positive nasal nares Erythematous lower extremity with small vesicles and scabs noted Decrease in erythema and edema in the left lower extremity noted compared to before Plan Continue antibiotics ceftriaxone and Zosyn day 4 Continue normal saline 100 mL/hour Elevate patient's left lower extremity Pain medications in place in case patient complains of pain Wound care consult in place Active illicit drug use 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 Jose L Farias MD Internal medicine resident,PGY-1 Date of Service: Dec 17, 2024 Billing Provider: UBALDO EARL DO Common Visit Codes: [id number] INP/OBS CARE(HIGH) JOSE L FARIAS, RES Dec 17, 2024 12:42 UBALDO EARL DO Dec 17, 2024 14:35
[2024-12-17 18:00] VITALS: BP 153/83; PULSE 73; RESP 14; TEMP 98.8; O2SAT 99
[2024-12-17] MEDS ORDERED: diphenhydrAMINE 2%/zinc acetate cream TP PRN (18:30)
[2024-12-17] MEDS: VANCOmycin 1250MG/NS 250ml Bag 250 ML IV SCH (21:42)
[2024-12-17 22:00] VITALS: BP 137/65; PULSE 77; RESP 16; TEMP 97.8; O2SAT 93
[2024-12-18 05:47] LABS: MEAN PLATELET VOLUME 6.8 FL (7.4-10.4); RED CELL DISTRIBUTION WIDTH 14.8 % (11.5-14.5)
[2024-12-18 06:00] VITALS: BP 155/91; PULSE 80; RESP 22; TEMP 97.7; O2SAT 99
[2024-12-18 06:00] LABS: CREATININE 0.90 MG/DL (0.60-1.10); TOTAL CARBON DIOXIDE 25.4 MMOL/L (24-32); eCRCL 68 ML/MIN; eGFR 84 ML/MIN
[2024-12-18 06:55] VITALS: BP 155/91; PULSE 80; RESP 22; TEMP 97.7; O2SAT 99
[2024-12-18 10:00] VITALS: BP 120/82; PULSE 77; RESP 16; TEMP 97.5; O2SAT 96
[2024-12-18] MEDS ORDERED: GADOTERATE MEGLUMINE 7.5 MMOL/15 ML VIAL IV ONE (13:39)
--- NOTE | 2024-12-18 13:56 | RADIOLOGY REPORT ---
CLINICAL HISTORY: Infection. Rule out osteomyelitis. TECHNIQUE: Multi sequence multi planar MRI images of the left lower leg were obtained prior to and after the uneventful administration of 12 mL clariscan contrast. COMPARISON: CT CT LOWER EXTREMITY W/ IV CONTRAST on DOS: 12/14/24 FINDINGS: There is moderate subcutaneous edema and enhancement in the left lower leg, likely cellulitis in the appropriate clinical setting. No organized fluid collection identified to suggest abscess. No findings are seen to suggest myositis or fasciitis. No evidence of osteomyelitis. IMPRESSION: Findings in the left lower extremity consistent with cellulitis in the appropriate clinical setting. No evidence of abscess or osteomyelitis.
[2024-12-18] MEDS ORDERED: LACT1CAP26 PO (14:25)
[2024-12-18] MEDS ORDERED: LINE600T14 PO (14:25)
[2024-12-18] MEDS ORDERED: NOR5T PO (14:25)
--- NOTE | 2024-12-18 20:10 | DISCHARGE SUMMARY-Residence ---
Discharge Summary Providers to CC Resident Creating Document: CUEMILY ZHANG, RES ~ Discharge Summary Admission Diagnosis: Cellulitis Hospital Course DATE OF ADMISSION: 12/14/2024 DATE OF DISCHARGE: 12/19/2019 Discharge Diagnosis\Comment: Left lower extremity cellulitis 2/2 failed outpatient oral antibiotics MRSA positive nasal nares Active illicit drug use Hypertension-possibly newly diagnosed Operations\Procedures: None Consultants: None Complications: None Condition on DC: Stable New Medications: Lactobacillus Rhamnosus (Culturelle) 10 Billion Cell Capsule 1 CAP PO DAILY for 30 Days, #30 CAP 0 Refills Linezolid (Linezolid) 600 Mg Tablet 1 TAB PO Q12H for 10 Days, #20 TAB 0 Refills Amlodipine Besylate (Amlodipine Besylate) 5 Mg Tablet 10 MG PO DAILY for 30 Days, #60 TAB Continued Medications: Ibuprofen* (Motrin*) 400 Mg Tablet 800 MG PO Q8H PRN for pain, TAB Naloxone HCl (Narcan) 4 Mg [place] 1 DOSPAK INH ONCE, #2 Use as directed Discharge Summary: HPI as per admitting physician: A 69-year-old male with a history of polysubstance abuse and intravenous drug use who has a past history of osteomyelitis of his right ankle, presented to the ED with left lower extremity cellulitis, patient stated that he had a scratch on his ankle while he was working in his garden,a month ago which started as a small sore and then eventually over a period of one month it developed into cellulitis below his knee extending all the way to his toes. Patient stated that he did experience couple of episodes of fever and chills during this month. Patient stated that he visited the [facility] and was prescribed oral antibiotics which the patient continued for 10 days, but patient continued to have severe pain and increase in redness and erythema in his left lower extremity. Patient's primary care doctor is from the [facility] Patient lives alone in his house Hospital course: The patient is a 69-year-old male with a history of polysubstance abuse, intravenous drug use, and prior osteomyelitis of the right ankle, who presented to the ED with left lower extremity cellulitis. On admission, he was noted to have erythema, edema, small vesicles, and scabbing of the left lower extremity, with MRSA-positive nasal colonization. He reported a history of long-term methamphetamine and marijuana use; urine toxicology on this admission was positive for methamphetamine and cannabinoids. The patient was started on IV vancomycin and Zosyn for cellulitis, with the left leg elevated and pain managed as needed. Wound care consultation was obtained. During hospitalization, cellulitis improved with decreased erythema and edema. Fluids were maintained with normal saline at 100 mL/hr, and blood pressure management included amlodipine increased to 10 mg daily for possible newly diagnosed hypertension. Echocardiogram revealed a normal ejection fraction of 6570%, and MRI was negative for osteomyelitis. Substance abuse and social services technician were involved for counseling and discharge planning. The patient remained stable, and arrangements were made for discharge to [facility], with follow-up planned with primary care, wound care, and substance use services. Physical examination today: General: Awake, oriented to person, place and time HEENT: Conjunctive are pink, sclerae clear, no icterus, arcus senilis noted,decreased vision in left eye; reactive to light, no ear discharge, no pharyngeal erythema or an edema. Neck: Supple, no JVD, no lymphadenopathy and thyromegaly. Chest: [place] shaped chest Equal air entry on both lungs, no additional sounds no rhonchi no wheezing at the moment. Cardiovascular: S1-S2 regular sinus rhythm and, regular rate, no gallops, no rubs, no murmurs Abdomen: No visible peristalsis, Bowel sounds present on auscultation, soft, no tenderness, no guarding, no rigidity Extremities: Left lower extremity cellulitis present erythematous with scab tissues; right lower extremity chronic vascular insufficiency stasis noted; right lower extremity ankle deformity noted post traumatic surgery; weak peripheral pulses noted in the right lower extremity Central Nervous System: No focal neurological deficits, no motor or sensory weakness in all 4 extremities, could move all 4 extremities, 2+ deep tendon reflexes, negative Babinski. Musculoskeletal: No joint swelling, deformities, inflammations, and no scoliosis and back tenderness Skin: Warm and dry. Dry oral mucosa. Imaging: Vascular ultrasound: No sonographic evidence of deep venous thrombosis in left lower extremity. Normal compressible veins with spontaneous respirophasic flow and good augmentation throughout left leg. Enlarged lymph node noted in the left groin measurin.7 x 1.3 x 2.5 cm and 1.1 x 0.7 x 2.1 cm. Contralateral common femoral vein also shows normal spontaneous respirophasic flow and good augmentation. Echocardiogram: Normal LV size and wall thickness. Overall systolic function is normal. LVEF is 65-70%. Right ventricle is mild to moderately dilated with adequate function. The left atrium size is normal. Trileaflet AV appears mildly sclerotic without stenosis. No insufficiency. No vegetation seen. Moderate mitral annular calcification without stenosis. Trace regurgitation. No vegetation seen. The tricuspid valve is normal in structure with trace regurgitation. No vegetation seen. The pulmonary valve is normal in structure with physiologic insufficiency. No vegetation seen. Normal pericardium. No effusion. CT lower extremity: 1. [place] subcutaneous stranding and skin thickening throughout the left lower leg, foot and ankle. Findings may represent infectious/inflammatory or passive etiology. No visualized fluid collection or evidence of deep space infection. 2. Probably reactive left inguinal adenopathy. 3. Mild to severe atherosclerosis. No obvious arterial occlusion. MRI lower extremity: Findings in the left lower extremity consistent with cellulitis in the appropriate clinical setting. No evidence of abscess or osteomyelitis. Laboratory Tests Test 12/16/24 21:05 12/17/24 05:32 12/18/24 05:19 12/18/24 07:52 Vancomycin Level Trough 11.1 ug/mL White Blood Count 8.8 X10'3 9.0 X10'3 Red Blood Count 4.62 X10'6 4.51 X10'6 Hemoglobin 13.5 g/dl 13.5 g/dl Hematocrit 41.1 % 39.3 % Mean Corpuscular Volume 89.0 FL 87.1 FL Mean Corpuscular Hemoglobin 29.1 PG 29.9 PG Mean Corpuscular Hemoglobin Concent 32.7 g/dL 34.3 g/dL Red Cell Distribution Width 14.9 % 14.8 % Platelet Count 574 X10'3 648 X10'3 Mean Platelet Volume 7.1 FL 6.8 FL Neutrophils (%) (Auto) 68.5 % 69.9 % Lymphocytes (%) (Auto) 18.9 % 16.5 % Monocytes (%) (Auto) 7.6 % 7.6 % Eosinophils (%) (Auto) 4.1 % 4.8 % Basophils (%) (Auto) 0.9 % 1.2 % Neutrophils # (Auto) 6.1 X10'3 6.3 X10'3 Lymphocytes # (Auto) 1.7 X10'3 1.5 X10'3 Monocytes # (Auto) 0.7 X10'3 0.7 X10'3 Eosinophils # (Auto) 0.4 X10'3 0.4 X10'3 Basophils # (Auto) 0.1 X10'3 0.1 X10'3 CBC Comment Basophilic Stippling Sodium Level 138 MMOL/L 141 MMOL/L Potassium Level 4.0 MMOL/L 4.0 MMOL/L Chloride Level 105 MMOL/L 107 MMOL/L Carbon Dioxide Level 25.4 MMOL/L 25.4 MMOL/L Anion Gap 8 9 Blood Urea Nitrogen 13 MG/DL 17 MG/DL Creatinine 1.00 MG/DL 0.90 MG/DL Estimated GFR/1.73 m2 74 ML/MIN 84 ML/MIN BUN/Creatinine Ratio 13.0 18.9 Glucose Level 100 MG/DL 102 MG/DL Calcium Level 8.4 MG/DL 8.4 MG/DL Magnesium Level 2.1 MG/DL 2.0 MG/DL Total Bilirubin 0.3 MG/DL 0.2 MG/DL Aspartate Amino Transf (AST/SGOT) 20 U/L 28 U/L Alanine Aminotransferase (ALT/SGPT) 9 U/L 15 U/L Alkaline Phosphatase 64 IU/L 59 IU/L Total Protein 7.2 G/DL 7.1 G/DL Albumin 2.4 G/DL 2.5 G/DL Globulin 4.8 G/DL 4.6 G/DL Albumin/Globulin Ratio 0.5 0.5 Chemistry Comments Erythrocyte Sedimentation Rate 44 MM/HR Advise on discharge: Wound care appointment on Wednesday, 12/25 Continue medications as prescribed, Zyvox and Culturelle Follow up with PCP in 1 week *Problems/Diagnosis: (1) Edema of lower extremity Status: Acute (2) Cellulitis Status: Acute Total Time Spent on D/C: > 30 Minutes Date of Service: Dec 18, 2024 Billing Provider: EFRA ABBOTT MD Common Visit Codes: 53003-XLM/[id number] DISCH DAY >30min EMILY BECKER, RES Dec 18, 2024 20:08 EFRA ABBOTT MD Dec 19, 2024 15:21
[2024-12-19] MEDS ORDERED: VANCOMYCIN LEVEL IV ONE (08:30)
== END 2024-12-18 15:56 | disposition home or self-care (01) | DRG 603 ==
LOC: ER 06:36 → ED HOLD 10:39 → ORTHO 4S 21:24
PROVIDERS: ADMIT Family Medicine; ATTEND Family Medicine
PROC: BQ2S1ZZ Computerized Tomography (CT Scan) of Left Lower Extremity using Low Osmolar Contrast (ICD-10-PCS; principal; 2024-12-14)
DX: L03.116 Cellulitis of left lower limb (principal); I10 Essential (primary) hypertension; R59.0 Localized enlarged lymph nodes; B95.62 Methicillin resistant Staphylococcus aureus infection as the cause of diseases classified elsewhere; F12.90 Cannabis use, unspecified, uncomplicated; F15.90 Other stimulant use, unspecified, uncomplicated
CPT/HCPCS: 36415; 73701; 73720; 80053; 80202; 80305; 80320; 81003; 83036; 83605; 83735; 83880; 84100; 84145; 85025; 85610; 85651; 85730; 86140; 87040; 87081; 93005; 93306; 93971; 96365; 96367; 96375; 97116; 97161; 97530; 99285; A6223; A6250; A6258; A6446; A6449; G0378; J1644; J2543; J3373; J3374; J7030; Q0163; Q9967